=== PATIENT | female | born 1955 | race African-American/Black ===

== ENCOUNTER → 2016-06-13 | Day surgery (SDC) | payer OTHER ==
[~2016-06-13] VITALS: Ht 165.1 cm; Wt 72.6 kg
[~2016-06-13] MED LIST: AMLODIPINE BESYL5 M1 PO; ASPIRIN EC81 M1 PO; HYDROCHLOROTHIA25 M1 PO; LIPITOR40 M1 PO
--- NOTE | 2016-06-13 13:33 | Operative Report ---
Operative/Inv Procedure Report Surgery Date: 06/13/16 Name of Procedure: TURBT Pre-Operative Diagnosis: bladder tumor Post-Operative Diagnosis: same Estimated Blood Loss: less than 50ml Surgeon/Legislative Analyst: KENNETH BLANC MD Anesthesia: laryngeal mask airway Drains: 18fr mata Specimens: bladder tumor fragments Complications: none Condition: stable Operative Indication: bladder tumor Operative/Procedure Note Note: This an operative dictation on patient Reese Erazo. She was identified in the holding area and consented for transurethral resection of the bladder tumor. The risks benefits and alternatives of surgery were given and all questions were answered. Patient was taken to the operating room placed on the operating table in the supine position. He was she was prepped and draped in the standard sterile fashion. Cystoscopy was performed the bladder was globally inspected. She appeared to have a urinary tract infection and she had small papules globally. The left lateral wall bladder tumor was identified as a sessile lesion small in caliber. No other lesions were appreciated or identified. Pre and post resection pictures were taken. The ureteral orifices were in their normal anatomic position. The resectoscope was then placed and the bladder tumor was resected using 80 cutting and 60 cautery settings. The entire tumor was removed and point coagulation was performed in the areas of bleeding. The edges were cauterized as well. Again no other lesions were identified. The patient tolerated procedure well. An 18 [place] Mata catheter was placed and the patient was cleaned of the Betadine solution and transferred to the recovery room in stable condition. Findings: left lateral wall/dome sessile tumor resected. Discharge Disposition: PACU
== END ==
LOC: STS 01:59
DX: D09.0 Carcinoma in situ of bladder (principal); I10 Essential (primary) hypertension
CPT/HCPCS: 88307; J0131; J0690; J2250